=== PATIENT | male | born 1975 | race Caucasian/White ===

== ENCOUNTER 2024-02-21 09:52 | Emergency (ER) | payer SELFPAY ==
[~2024-02-21] VITALS: Ht 162.6 cm; Wt 54.4 kg
[2024-02-21 09:58] VITALS: BP 153/91; TEMP 97.5; O2SAT 98
== END 2024-02-21 10:48 | disposition left against medical advice (07) ==
LOC: M ED 09:52
DX: Z53.21 Procedure and treatment not carried out due to patient leaving prior to being seen by health care provider (principal)